=== PATIENT | male | born 1970 | race American Indian/Alaskan Native ===

== ENCOUNTER 2016-10-03 06:57 | Emergency (ER) | payer BC ==
[2016-10-03 07:44] VITALS: TEMP 98.7
[2016-10-03] MEDS ORDERED: Labetalol 5 mg/ml Inj 20ML IV STA (08:01)
--- NOTE | 2016-10-03 08:19 | ED PDOC ---
Arrival/HPI - General Chief Complaint: High Blood Pressure Time Seen by Provider: 10/03/16 07:47 Historian: Patient - History of Present Illness Narrative History of Present Illness (Text): 10/03/16 07:56 Robby Ashton is a 45 year old male, whose past medical history includes hypertension, presents to the Emergency department complaining of having high blood pressure and for a new refill. Patient reports that he has stopped taking his medication, Edarbyclor, for the past three months due to him moving to a different city. He reports that one week ago his symptoms, which included, dizziness, lightheadedness, and blurred vision occurred intermittently. Currently he has no symptoms. He also states having low back pain with movement at times, mainly due to his work. This morning his blood pressure was high and he decided to report to the emergency department to get his refill. Patient denies any chest pain, shortness of breath, headache, fever, chills, cough, nausea, vomiting, diarrhea, abdominal pain, or other complaints. PMD: Dr. Garima Kang Time/Duration: 1 week Symptom Onset: Sudden Symptom Course: Unchanged Activities at Onset: Light Modifying Factors (Text): None Associated Symptoms (Text): lightheadedness, dizziness, blurred vision, and low back pain (mostly associated with work) Past Medical History - Provider Review Nursing Documentation Reviewed: Yes - Infectious Disease Hx of Infectious Diseases: None - Cardiac Hx Hypertension: Yes - Psychiatric Hx Substance Use: No Family/Social History - Physician Review Nursing Documentation Reviewed: Yes Family/Social History: Unknown Family HX Smoking Status: Unknown If Ever Smoked Hx Alcohol Use: No Hx Substance Use: No Allergies/Home Meds Allergies/Adverse Reactions: Allergies No Known Allergies Allergy (Verified 10/25/14 13:10) Review of Systems - Review of Systems Constitutional: Other (lightheadedness). absent: Fevers Eyes: Vision Changes ENT: Normal Respiratory: absent: SOB Cardiovascular: absent: Chest Pain Gastrointestinal: absent: Abdominal Pain, Diarrhea, Nausea, Vomiting Genitourinary Male: Normal Musculoskeletal: Back Pain (low back pain) Skin: Normal Neurological: Dizziness Endocrine: Normal Hemo/Lymphatic: Normal Psychiatric: Normal Physical Exam Vital Signs Reviewed: Yes Vital Signs Temp Pulse Resp BP Pulse Ox 10/03/16 09:41 69 18 151/104 H 97 10/03/16 09:07 76 18 160/103 H 98 10/03/16 08:20 176/110 H 10/03/16 08:19 176/110 H 10/03/16 07:20 98.7 F 80 16 183/122 H 98 Temperature: Afebrile Blood Pressure: Hypertensive Pulse: Regular Respiratory Rate: Normal Appearance: Positive for: Well-Appearing, Non-Toxic, Comfortable Pain Distress: None Mental Status: Positive for: Alert and Oriented X 3 - Systems Exam Head: Present: Atraumatic, Normocephalic Pupils: Present: PERRL Extroacular Muscles: Present: EOMI Conjunctiva: Present: Normal Mouth: Present: Moist Mucous Membranes Neck: Present: Normal Range of Motion Respiratory/Chest: Present: Clear to Auscultation, Good Air Exchange. No: Respiratory Distress, Accessory Muscle Use Cardiovascular: Present: Regular Rate and Rhythm, Normal S1, S2. No: Murmurs Abdomen: Present: Normal Bowel Sounds. No: Tenderness, Distention, Peritoneal Signs Upper Extremity: Present: Normal Inspection. No: Cyanosis, Edema Lower Extremity: Present: Normal Inspection. No: Edema Neurological: Present: GCS=15, CN II-XII Intact, Speech Normal, Motor Func Grossly Intact, Normal Sensory Function, Normal Cerebellar Funct, Gait Normal, Memory Normal, Normal 2Pt Descrimination Skin: Present: Warm, Dry, Normal Color. No: Rashes Psychiatric: Present: Alert, Oriented x 3, Normal Insight, Normal Concentration Medical Decision Making ED Course and Treatment: 10/03/16 07:56 Impression: 45 year old male with high blood pressure. Differential Diagnosis included but are not limited to: High Blood Pressure Plan: -- EKG -- Labs -- Trandate -- Reassess and disposition Progress Notes: EKG: Ordered, reviewed, and independently interpreted the EKG. Rate : 73 BPM Rhythm : NSR Interpretation : first degree AV block. 10/03/16 09:10 Reevaluation: Patient was noted to have high glucose. Patient used to be on Metformin, but discontinued the medication because of side effects. On reevaluation the patient feels better and is in no acute distress. Patient's blood pressure has improved and is asymptomatic. The case was discussed with patients PMD, Dr. Brown, who agrees on seeing him in his office today and will advice him to start on Glipizide 10 mg a day. Patient agrees to go see her today and he does not want to stay in hospital for admission. - Lab Interpretations Lab Results: 10/03/16 08:16 10/03/16 08:16 Lab Results 10/03/16 08:16: Sodium 138, Potassium 4.7, Chloride 102, Carbon Dioxide 26, Anion Gap 15, BUN 14, Creatinine 1.0, Est GFR ( Amer) > 60, Est GFR (Non- Af Amer) > 60, Random Glucose 336 H*, Calcium 9.6 10/03/16 08:16: WBC 4.6, RBC 4.58, Hgb 13.6 L, Hct 39.2 L, MCV 85.6, MCH 29.7, MCHC 34.7, RDW 13.2, Plt Count 207, MPV 11.2 H, Gran % 51.3, Lymph % (Auto) 33.0 , Morrison % (Auto) 9.5 H, Eos % (Auto) 5.8 H, Baso % (Auto) 0.4, Gran # 2.38, Lymph # 1.5, Morrison # 0.4, Eos # 0.3, Baso # 0.02 I have reviewed the lab results: Yes - EKG Interpretation Interpreted by ED Physician: Yes Type: 12 lead EKG - Medication Orders Current Medication Orders: Discontinued Medications Glipizide (Glucotrol) 10 mg PO STAT STA Stop: 10/03/16 09:07 Last Admin: 10/03/16 09:33 Dose: 10 mg Labetalol HCl (Trandate) 20 mg IV STAT STA Stop: 10/03/16 08:02 Last Admin: 10/03/16 08:20 Dose: 20 mg - Scribe Statement The provider has reviewed the documentation as recorded by the Scribe 10/03/2016 Bina Franks Provider Scribe Attestation: All medical record entries made by the Scribe were at my direction and personally dictated by me. I have reviewed the chart and agree that the record accurately reflects my personal performance of the history, physical exam, medical decision making, and the department course for this patient. I have also personally directed, reviewed, and agree with the discharge instructions and disposition. Disposition/Present on Arrival - Present on Arrival Any Indicators Present on Arrival: No History of DVT/PE: No History of Uncontrolled Diabetes: No Urinary Catheter: No History of Decub. Ulcer: No History Surgical Site Infection Following: None - Disposition Have Diagnosis and Disposition been Completed?: Yes Diagnosis: Hyperglycemia, Hypertension Disposition: HOME/ ROUTINE Disposition Time: 09:42 Patient Plan: Discharge Condition: IMPROVED Discharge Instructions (ExitCare): Hypertension (ED), Diabetic Hyperglycemia ( ED) Additional Instructions: Mr Ashton, thank you for letting us take care of you today. Your provider was Dr. Kelly. You were treated for Hyperglycemia, Hypertension. The emergency medical care you received today was directed at your acute symptoms. If you were prescribed any medication, please fill it and take as directed. It may take several days for your symptoms to resolve. Return to the Emergency Department if your symptoms worsen, do not improve, or if you have any other problems. Please contact your doctor or call one of the physicians/clinics you have been referred to that are listed on the Patient Visit Information form that is included in your discharge packet. Bring any paperwork you were given at discharge with you along with any medications you are taking to your follow up visit. Our treatment cannot replace ongoing medical care by a primary care provider (PCP) outside of the emergency department. Thank you for allowing the [facility] team to be part of your care today. If you had an X-Ray or CT scan: A Radiologist will review the ED reading if any change in treatment is needed we will contact you. If you had a blood, urine, or wound culture: It will take several days for the results, if any change in treatment is needed we will contact you. If you had an STI test: It will take 48 hours for the results. Please call after 1 week if you have not heard back. Prescriptions: Azilsartan Med/Chlorthalidone [Edarbyclor 40 mg-25 mg] 1 tab PO DAILY #30 tab GlipiZIDE [Glucotrol] 10 mg PO BID #30 tab Referrals: Janene Charles MD [Primary Care Provider] - Follow up with primary Forms: [employer] ([place])
[2016-10-03 08:27] LABS: BASO # 0.02 K/mm3 (0.0-2.0); BASO % 0.4 % (0.0-3.0); EOS # 0.3 (0.0-0.7); EOS % 5.8 % (1.5-5.0); GRAN # 2.38 (1.4-6.5); GRAN % 51.3 % (50.0-68.0); HEMOGLOBIN 13.6 gm/dL (14.0-18.0); LYMPH # 1.5 (1.2-3.4); MEAN CELL VOLUME 85.6 fL (80.0-105.0); MEAN CORPUSCULAR HEMOGLOBIN 29.7 pg (25.0-35.0); MEAN CORPUSCULAR HGB CONC 34.7 g/dl (31.0-37.0); MEAN PLATELET VOLUME 11.2 fl (7.0-11.0); MONO # 0.4 (0.1-0.6); MONO % 9.5 % (1.0-6.0); PLATELET COUNT 207 10^3/uL (120.0-450.0); RBC 4.58 10^6/uL (3.5-6.1); RED CELL DISTRIBUTION WIDTH 13.2 % (11.5-14.5); WHITE BLOOD COUNT 4.6 10^3/ul (4.5-11.0)
[2016-10-03 08:40] LABS: BLOOD UREA NITROGEN 14 mg/dL (7-21); CALCIUM 9.6 mg/dL (8.4-10.5); GFR AFRICAN-AMERICAN > 60; GFR NON-AFRICAN AMERICAN > 60
[2016-10-03 09:11] VITALS: RESP 18
[2016-10-03 09:42] VITALS: BP 151/104; PULSE 69; O2SAT 97
--- NOTE | 2016-10-03 12:56 | CARD ---
APPROVED REPORT EKG Measurement Heart [id number] <Conclusion> Sinus rhythm with 1st degree AV block Otherwise normal ECG
== END 2016-10-03 09:42 | disposition home or self-care (01) ==
LOC: ED 06:57
DX: I10 Essential (primary) hypertension (principal); E11.65 Type 2 diabetes mellitus with hyperglycemia